=== PATIENT | male | born 1935 | race Caucasian/White ===

== ENCOUNTER 2020-04-19 07:09 | Day surgery (SDC) | payer MEDICARE, OTHER ==
[~2020-04-19] VITALS: Ht 177.8 cm; Wt 82.5 kg
[2020-04-19] MEDS ORDERED: OMEP20ER PO (07:59)
[2020-04-19] MEDS ORDERED: ZOCOR20 MG PO (08:00)
[2020-04-19] MEDS ORDERED: HYDCHL25 PO (08:00)
[2020-04-19] MEDS ORDERED: CARBLEV25 SL (08:01)
--- NOTE | 2020-04-19 08:35 | NUR ---
04/19/20 0835 Carina Zavala CALL LIG WITHIN REACH. DR. VALENZUELA AWARE OF PT'S HIGH BP. OK TO PROCEED WITH PROCEDURE.
== END 2020-04-19 09:25 | disposition home or self-care (01) ==
LOC: ORSCSDS 07:09
PROVIDERS: Ophthalmology
PROC: 08RJ3JZ Replacement of Right Lens with Synthetic Substitute, Percutaneous Approach (ICD-10-PCS; principal; 2020-04-19 08:30)
DX: H25.11 Age-related nuclear cataract, right eye (principal); I10 Essential (primary) hypertension; E78.5 Hyperlipidemia, unspecified; Z87.891 Personal history of nicotine dependence; K21.9 Gastro-esophageal reflux disease without esophagitis; G20 Parkinson's disease; Z79.899 Other long term (current) drug therapy
CPT/HCPCS: J2001; J2250; J3010; J3301; J7040; J7120; V2632

== ENCOUNTER → 2023-09-11 | Outpatient (CLI) | payer MEDICARE, OTHER ==
[~2023-09-11] MED LIST: CARBLEV25 SL; HYDCHL25 PO; OMEP20ER PO; ZOCOR20 MG PO
== END ==
LOC: LAB SHORT 12:09 → LAB 12:09
DX: L08.0 Pyoderma (principal)
CPT/HCPCS: 87070; 87205

== ENCOUNTER 2024-11-04 08:27 | Inpatient (IN) | payer MEDICARE, OTHER ==
[~2024-11-04] VITALS: Ht 185.4 cm; Wt 78.0 kg
[~2024-11-04 08:27] MED LIST changes: +CARBIDOPA-LEVO1 EA15 PO; -CARBLEV25 SL
[2024-11-04 09:20] LABS: BASOPHILS ABSOLUTE AUTO 0.02 K/mm3 (0.00-0.23); BASOPHILS PERCENT AUTO 0 % (0-2); EOSINOPHILS PERCENT AUTO 0 % (0-6); Hematocrit 40.7 % (37.0-53.0); Hemoglobin 14.1 g/dL (13.5-17.5); IMMATURE GRAN ABSOLUTE AUTO 0.05 K/mm3 (0.00-0.10); IMMATURE GRAN PERCENT AUTO 1 % (0-1); LYMPHOCYTES ABSOLUTE AUTO 0.57 K/mm3 (0.84-5.20); LYMPHOCYTES PERCENT AUTO 7 % (21-46); MONOCYTES ABSOLUTE AUTO 0.64 K/mm3 (0.16-1.47); MONOCYTES PERCENT AUTO 8 % (4-13); Mean Corpuscular HGB 32.4 pg (26.0-34.0); Mean Corpuscular HGB Conc 34.6 g/dL (31.5-36.5); Mean Corpuscular Volume 94 fL (80-100); Mean Platelet Volume 10.9 fL (9.1-12.4); NEUTROPHILS ABSOLUTE AUTO 6.71 K/mm3 (1.96-9.15); NEUTROPHILS PERCENT AUTO 84 % (41-73); Platelet Count 104 K/mm3 (150-400); RDW Coefficient Variation 13.8 % (11.7-14.2); RDW Standard Deviation 47.8 fL (35.1-46.3); Red Blood Cell Count 4.35 M/mm3 (4.30-5.90); White Blood Cell Count 7.99 K/mm3 (4.00-11.30)
[2024-11-04 09:32] LABS: Albumin, Blood 3.6 g/dL (3.4-5.0); Albumin/Globulin Ratio 0.9 (0.8-1.8); Bilirubin, Total 1.9 mg/dL (0.1-1.0); Bun/Creatinine Ratio 22.4 (12.0-20.0); Calcium, Blood 9.4 mg/dL (8.5-10.1); Creatinine, Blood 1.43 mg/dL (0.60-1.20); Potassium, Blood 5.3 mmol/L (3.5-5.5); Total Protein, Blood 7.6 g/dL (6.4-8.2)
[2024-11-04] MEDS ORDERED: NS 1,000 ML IV SCH ×2 (09:50→15:30)
[2024-11-04 11:24] LABS: Influenza A, PCR NEGATIVE (NEGATIVE); Influenza B, PCR NEGATIVE (NEGATIVE); SARS-Cov-2 (COVID-19) PCR, MMC NEGATIVE (NEGATIVE)
[2024-11-04 11:24] LABS: Source, Urine Clean Catch
[2024-11-04 11:36] LABS: Resp Syncytial Virus, PCR POSITIVE (NEGATIVE)
[2024-11-04 11:59] LABS: Appearance, Urine Hazy (Clear); Bilirubin, Urine Neg (Neg); Blood, Urine 5+ (Neg); Color, Urine Yellow (P-Yellow); Glucose Qualitative, Urine Neg (Neg); Ketones, Urine Neg (Neg); Leukocyte Esterase, Urine 1+ (Neg); Nitrite, Urine Neg (Neg); Protein, Urine 3+ (Neg); Specific Gravity, Urine 1.015 (1.003-1.022); Urobilinogen, Urine 1+ (Normal)
[2024-11-04 12:11] LABS: Bacteria Mod /hpf; Hyaline Casts 0-2 /lpf (0-2); Mucus Light (0-Heavy); Red Blood Cells, Urine 50-100 /hpf (0-2); Squamous Epithelial Cells Few /hpf (Few)
[2024-11-04] MEDS ORDERED: CefTRIAXone Sodium 2,000 MG in NS 100 ML IV ONE (12:35)
[2024-11-04] MEDS ORDERED: Azithromycin 500 MG in NS 250 ML IV ONE (12:35)
[2024-11-04] MEDS ORDERED: Ipratropium/Albuterol SulF 2.5-0.5MG/3 ML Amp INH PRN (13:45)
[2024-11-04] MEDS ORDERED: FLU VACC TS2024-25(6MOS UP)/PF 45 MCG/0.5 ML SYRINGE IM SCH (13:50)
[2024-11-04 16:57] VITALS: BP 203/103
[2024-11-04] MEDS ORDERED: HydrALAZINE HCl 20 MG / ML 1ML Vial IV PRN (17:10)
--- NOTE | 2024-11-04 17:20 | NUR ---
Pt arrived to 357 via gurney from ED, he is able to stand and transfer with assist to bed, he is a/ox2-3, follows commands and is cooperative with care, when asked him what happened to bring him to hospital he started telling a story about his father coming to [facility], lungs are clear in upper velasco, dim in bases, resp even and unnlabored, no cough noted, hrr, no edema noted, ppp+2, cap refill <3 sec, vs stable, afebrile, piv to rere site is clear and patent, btx4, abd flat soft nontender, voids via urinal, skin c/w/d, maew, brandon, oriented to room layout and call system, call light in reach.
[2024-11-04] MEDS ORDERED: VENL75ER PO (17:48)
[2024-11-04] MEDS ORDERED: Amlodipine Bes2.5 MG PO ×2 (17:50→17:54)
[2024-11-04] MEDS ORDERED: VIT D3-VIT K21 EACH PO (17:51)
[2024-11-04] MEDS ORDERED: ALLO100 PO (17:53)
[2024-11-04] MEDS ORDERED: ATORVASTATIN CA80 M1 PO (17:55)
[2024-11-04] MEDS ORDERED: OMEP20ER PO (17:56)
[2024-11-04] MEDS ORDERED: Venlafaxine HCl75 MG PO (17:57)
[2024-11-04] MEDS ORDERED: ERGO400 PO (17:58)
[2024-11-04 18:16] VITALS: BP 174/82
[2024-11-04 19:52] VITALS: BP 124/57
[2024-11-04] MEDS ORDERED: Venlafaxine HCl 25 MG Tab PO SCH (21:00)
[2024-11-04] MEDS ORDERED: GuaiFENesin 600 MG TabCR PO SCH (21:00)
[2024-11-04] MEDS ORDERED: Levodopa/Carbidopa 100 / 25 MG Tab PO SCH (21:00)
[2024-11-05] VITALS (8 sets, daily range): BP systolic 92–194; BP diastolic 52–90
[2024-11-05 05:06] LABS: Hematocrit 38.6 % (37.0-53.0); Hemoglobin 13.3 g/dL (13.5-17.5); Mean Corpuscular HGB 32.4 pg (26.0-34.0); Mean Corpuscular HGB Conc 34.5 g/dL (31.5-36.5); Mean Corpuscular Volume 94 fL (80-100); Mean Platelet Volume 10.6 fL (9.1-12.4); Platelet Count 100 K/mm3 (150-400); RDW Standard Deviation 48.9 fL (35.1-46.3); White Blood Cell Count 4.46 K/mm3 (4.00-11.30)
--- NOTE | 2024-11-05 05:12 | NUR ---
SHIFT SUMMARY: PT AOX3 FORGETFUL OF DATE, SOME CONFUSION BUT EASILY REDIRECTABLE AND VERY PLEASANT. COOPERATIVE IN CARE. PT FOLLOWS COMMANDS AND IS ABLE TO MAKE NEEDS KNOWN. [place] THOUGH HE HAS HIS HEARING AIDS HE DOESNT THINK THEY ARE CHARGED. PT TOLERATING MEDICATIONS WELL. SOME EPISODE OF HTN, MEDICATED PER EMR. PT NOT IMPULSIVE AND ABLE TO MAKE NEEDS KNOWN. AFTER EVENING MEDS HAS HAD A PRODUCTIVE COUGH BUT DENIES ANY SOB OR CP. PT WAS ABLE TO STAND WITH ASSISST AND FWW AND USE THE URINAL. VERY UNSTEADY ON FEET. PT AWARE OF LIMITATIONS. PT IN BED RESTING, BED ALARM ON, BED IN LOWEST POSITION, CALL LIGHT IN REACH. CONTINUING CARE.
[2024-11-05 05:31] LABS: Bun/Creatinine Ratio 26.7 (12.0-20.0); Creatinine, Blood 1.16 mg/dL (0.60-1.20); Potassium, Blood 3.7 mmol/L (3.5-5.5)
[2024-11-05] MEDS ORDERED: Omeprazole 20 MG CapCR PO SCH (06:00)
[2024-11-05] MEDS ORDERED: Allopurinol 100 MG Tab PO SCH (09:00)
[2024-11-05] MEDS ORDERED: Atorvastatin 10 MG Tab PO SCH (09:00)
[2024-11-05] MEDS ORDERED: Enoxaparin 40 MG/0.4 ML SYR SC SCH (09:00)
[2024-11-05] MEDS ORDERED: Cholecalciferol 400 unit Tab PO SCH (09:00)
[2024-11-05] MEDS ORDERED: AmLODIPine Besylate 5 MG Tab PO SCH (09:00)
[2024-11-05] MEDS ORDERED: CefTRIAXone Sodium 1,000 MG in NS 100 ML IV SCH (12:00)
[2024-11-05] MEDS ORDERED: Azithromycin 500 MG in NS 250 ML IV SCH (12:00)
[2024-11-05] MEDS ORDERED: CARBIDOPA-LEVO1 EA15 PO (12:33)
[2024-11-05] MEDS ORDERED: Acetaminophen 325 MG TABLET PO PRN (13:50)
--- NOTE | 2024-11-05 19:50 | NUR ---
PER SPOUSE, PT LOOKING AND FEELING MUCH BETTER TODAY THAN YESTERDAY. UNSTEADY GAIT. 1 PERSON ASSIST WITH FWW AND GAIT BELT TO BATHROOM. PT ON R.A AT 1800. PT IS ALERT AND ORIENTED X3-4, FORGETFUL AND NOT QUITE AT BASELINE. SPOUSE STATES PT NOT NORMALLY INTERMITTENT CONFUSED. EASILY REDIRECTABLE. BED ALARM ON.
--- NOTE | 2024-11-05 22:45 | NUR ---
PATIENT HYPERTENSIVE AT SHIFT CHANGE 194/90. IV APRESOLINE 10 MG GIVEN FOR SBP > 185. RECHECK 143/81. WCTM.
[2024-11-06 00:54] VITALS: BP 154/82
--- NOTE | 2024-11-06 04:06 | NUR ---
SHIFT SUMMARY PATIENT HYPERTENSIVE AT SHIFT CHANGE (SEE NOTE). AXO X 3-4 WITH CONFUSION AT TIMES. LEFT SIDE TREMORS WITH HX OF PARKINSON. DENIES CHEST PAIN, SOB, AND N/V. PIV INTACT. TELE MONITOR NSR 75. ON ROOM AIR. ONE ASSIST TO BR . CALL LIGHT IN REACH. BED IN LOWEST POSITION AND ALARM ACTIVATED. WILL CONTINUE TO MONITOR UNTIL DAY SHIFT NURSE ASSUMES CARE.
[2024-11-06 04:55] VITALS: BP 182/90
[2024-11-06 07:28] VITALS: BP 209/90
[2024-11-06 08:42] VITALS: BP 151/75
[2024-11-06] MEDS ORDERED: Amoxicillin/Clavulanate K 875 MG Tab PO SCH (09:00)
[2024-11-06] MEDS ORDERED: AmLODIPine Besylate 5 MG Tab PO SCH (09:00)
[2024-11-06 11:22] VITALS: BP 126/66
[2024-11-06] MEDS ORDERED: AMOCLA875 PO (11:53)
[2024-11-06] MEDS ORDERED: VISBIOME 112.51 EACH PO (11:54)
[2024-11-06] MEDS ORDERED: Q-Tussin100 MG/5 M PO (11:55)
--- NOTE | 2024-11-06 12:41 | NUR ---
DISCHARGE SUMMARY PATIENT DISCHARGED HOME THIS SHIFT WITH TO DRIVE. IV REMOVED WITHOUT COMPLICATION. ASSISTED PATIENT TO DRESS. DISCHARGE PACKET GIVEN AND REVIEWED WITH PT AND , QUESTIONS ANSWERED, VERBALIZED UNDERSTANDING. MEDS FAXED TO [facility] DUE TO WEEKEND AVAILABILITY.
== END 2024-11-06 12:18 | disposition home or self-care (01) | DRG 193 ==
LOC: ER 08:27 → MEDS 13:44
PROVIDERS: Emergency Medicine; Student in an Organized Health Care Education/Training Program; ADMIT Internal Medicine
DX: J18.9 Pneumonia, unspecified organism (principal); J96.01 Acute respiratory failure with hypoxia; E87.1 Hypo-osmolality and hyponatremia; G20.A1 Parkinson's disease without dyskinesia, without mention of fluctuations; Z66 Do not resuscitate; J44.9 Chronic obstructive pulmonary disease, unspecified; I10 Essential (primary) hypertension; E78.5 Hyperlipidemia, unspecified; M10.9 Gout, unspecified; J20.5 Acute bronchitis due to respiratory syncytial virus; K21.9 Gastro-esophageal reflux disease without esophagitis; F32.A Depression, unspecified; R53.1 Weakness; Z87.891 Personal history of nicotine dependence; Z90.79 Acquired absence of other genital organ(s); Z90.89 Acquired absence of other organs; Z90.49 Acquired absence of other specified parts of digestive tract; Z98.41 Cataract extraction status, right eye; Z79.899 Other long term (current) drug therapy
CPT/HCPCS: 0241U; 36415; 70450; 71046; 74177; 76705; 80048; 80053; 81001; 83605; 83690; 85025; 85027; 87040; 87077; 87086; 87186; 93005; 93010; 96365; 96368; 97110; 97116; 97162; 97165; 99285-25; A9270; J0360; J0456; J0696; J1650; J7030; J7050; Q9967

== ENCOUNTER 2025-03-05 02:56 | Inpatient (IN) | payer MEDICARE, OTHER ==
[~2025-03-05] VITALS: Ht 180.3 cm; Wt 76.2 kg
[2025-03-05] VITALS (31 sets, daily range): BP systolic 76–162; BP diastolic 43–107
[~2025-03-05 02:56] MED LIST changes: +ALLO100 PO; +AMOCLA875 PO; +ATORVASTATIN CA80 M1 PO; +Amlodipine Bes2.5 MG PO; +ERGO400 PO; +Q-Tussin100 MG/5 M PO; +VENL75ER PO; +VISBIOME 112.51 EACH PO; +VIT D3-VIT K21 EACH PO; +Venlafaxine HCl75 MG PO
[2025-03-05 03:24] LABS: BASOPHILS ABSOLUTE AUTO 0.02 K/mm3 (0.00-0.23); BASOPHILS PERCENT AUTO 0 % (0-2); EOSINOPHILS ABSOLUTE AUTO 0.00 K/mm3 (0.00-0.68); EOSINOPHILS PERCENT AUTO 0 % (0-6); Hematocrit 30.4 % (37.0-53.0); Hemoglobin 9.8 g/dL (13.5-17.5); IMMATURE GRAN ABSOLUTE AUTO 0.08 K/mm3 (0.00-0.10); IMMATURE GRAN PERCENT AUTO 1 % (0-1); LYMPHOCYTES ABSOLUTE AUTO 1.20 K/mm3 (0.84-5.20); LYMPHOCYTES PERCENT AUTO 20 % (21-46); MONOCYTES ABSOLUTE AUTO 0.29 K/mm3 (0.16-1.47); MONOCYTES PERCENT AUTO 5 % (4-13); Mean Corpuscular HGB Conc 32.2 g/dL (31.5-36.5); Mean Corpuscular Volume 101 fL (80-100); NEUTROPHILS ABSOLUTE AUTO 4.31 K/mm3 (1.96-9.15); NEUTROPHILS PERCENT AUTO 73 % (41-73); NRBC ABSOLUTE 0.00 K/mm3 (0.00-0.02); NRBC Auto 0.0 /100 WBC (0.0-0.2); Platelet Count 119 K/mm3 (150-400); RDW Coefficient Variation 13.9 % (11.7-14.2); RDW Standard Deviation 51.3 fL (35.1-46.3)
[2025-03-05 03:50] LABS: Prothrombin Time Results 13.0 Sec (9.7-11.5)
[2025-03-05 04:03] LABS: Magnesium, Blood 1.9 mg/dL (1.6-2.4); Thyroid Stimulating Hormone 2.41 uIU/mL (0.360-4.800)
[2025-03-05 04:04] LABS: Alanine Aminotransfer (ALT/SGP 16.0 U/L (12-78); Albumin, Blood 2.8 g/dL (3.4-5.0); Albumin/Globulin Ratio 1.2 (0.8-1.8); Anion Gap 13.0 mmol/L (3-11); Aspartate Aminotrans (AST/SGOT 14.0 U/L (12-37); Bilirubin, Total 0.7 mg/dL (0.1-1.0); Blood Urea Nitrogen 49.0 mg/dL (8-24); CO2, Blood 20.0 mmol/L (21-32); Calcium, Blood 7.9 mg/dL (8.5-10.1); Chloride, Blood 109.0 mmol/L (98-108); Creatinine, Blood 1.78 mg/dL (0.60-1.20); Globulin, Blood 2.3 g/dL (2.2-4.0); Glucose, Blood 257.0 mg/dL (70-99); Phosphorus, Blood 4.5 mg/dL (2.5-4.9); Potassium, Blood 4.1 mmol/L (3.5-5.5); Sodium, Blood 138.0 mmol/L (136-145); Total Protein, Blood 5.1 g/dL (6.4-8.2)
[2025-03-05] MEDS ORDERED: NS 1,000 ML IV SCH ×2 (04:35→06:00)
[2025-03-05 04:44] LABS: Hematocrit 27.2 % (37.0-53.0); Hemoglobin 9.2 g/dL (13.5-17.5)
--- NOTE | 2025-03-05 06:20 | NUR ---
Patient arrived to unit around 0620. Report received from ALEXANDER Fuentes-LUIS ENRIQUE. was at bedside. AOx3, UNALAKLEET. Tele: SR. Patient blanked out staring into space and unresponsive to verbal and tactile stimuli while this RN and ROLLER SHOP UTILITY WORKER was getting patient settled into room. ELECTRICAL PROSPECTING OPERATOR intiated. Received V.O. from Dr. Shahab Robles to discontinue blood pressure lowering meds that are currently ordered for patient. [facility] d/c'd. Patient remains in room 304. Settled to bed, call light in reach. Report handed to day RNRama.
[2025-03-05 06:53] LABS: Hematocrit 28.2 % (37.0-53.0); Hemoglobin 8.9 g/dL (13.5-17.5)
[2025-03-05] MEDS ORDERED: Pantoprazole Sodium 40 MG Injection IV SCH (09:00)
[2025-03-05] MEDS ORDERED: NS 500 ML IV STA (09:33)
--- NOTE | 2025-03-05 09:34 | NUR ---
PATIENT HAS HAD 2 SYNCOPAL EPISODES SINCE ARRIVAL TO THE FLOOR. DR CORTÉS AT BEDSIDE FOR THE LAST EPISODE AND COMMUNICATED THIS TO DR RIOS. PLAN IS FOR MRI OF HEAD.
[2025-03-05] MEDS ORDERED: Levodopa/Carbidopa 100 / 25 MG Tab PO SCH ×3 (11:00→16:00)
--- NOTE | 2025-03-05 14:26 | NUR ---
OVER THE LAST 2 HOURS PATIENT HAS HAD 4 DARK RED BLOODY BOWEL MOVEMENTS. CONFUSION HAS INCREASED OVER THE LAST SEVERAL HOURS AND PATIENT IS HAVING VISUAL HALLUCINATIONS. APPEARS TO HAVE ABSENT EPISODES WHERE HE DOES NOT REPSOND OR FOLLOW COMMANDS. DR RIOS NOTIFIED AND A STAT H/H ORDERED. ALSO VERBAL ORDERS TO TRANSFER TO PCU.
[2025-03-05 15:12] LABS: Hematocrit 20.8 % (37.0-53.0); Hemoglobin 6.7 g/dL (13.5-17.5)
--- NOTE | 2025-03-05 15:55 | NUR ---
ARRIVAL PATIENT ARRIVES TO UNIT AND WE SWAPPED BEDS. PATIENT IS ALERT AND ORIENTED TO YEAR. DOES NOT KNOW WHERE HE IS AT OR WHAT BROUGHT HIM IN. WAS NOTIFIED OF ROOM CHANGE. VITAL SIGNS TAKEN & PT STABLE. DENYING ANY CHEST PAIN/PRESSURE OR FEELING SHORT OF BREATH. PUREWICK PLACED AND PT ORIENTED TO ROOM. HAS CALL LIGHT WITHIN REACH, BED IN LOWEST POSITION & STATING NOTHING ELSE IS NEEDED AT THIS TIME.
[2025-03-05] MEDS ORDERED: Diazepam 5 MG / ML 2ML SYR IV PRN (16:50)
--- NOTE | 2025-03-05 16:56 | NUR ---
SEIZURE LIKE ACTIVITY: PATIENT WAS SAT UP BY THIS RN TO ATTEMPT A BEDSIDE SWALLOW EVALUATION, ONCE PATIENT WAS SAT UP AT 90 DEGREES HE HAD A BLANK STARE,STOPPED TALKING,STARTED SNORING AND GOT RIGID & SMALL SHAKES. PT WAS LAID BACK DOWN, AND TURNED TO HIS RIGHT SIDE. MOUTH WAS SUCTIONED AND SHORTLY AFTER PATIENT CAME BACK TO CONSIOUSNESS. WAS CONFUSED ON WHERE HE WAS AT. WAS ABLE TO GIVE NAME. CASEY MCDONNELL WAS STARATED,MD WAS NOTIFIED & FAMILY WAS CALLED. TRANSPORT TO COME TO GET PT MORE IMAGING DONE. FAMILY IN ROOM AND PATIENT CONVERSING WITH THEM.
[2025-03-05] MEDS ORDERED: NS 250 ML IV PRN (17:35)
--- NOTE | 2025-03-05 19:18 | NUR ---
PT ARRIVEE FROM PCU AT 1830. NEURO: PT NOT FOLLOWING COMMANDS FOR LONG, MINIMALLY REDIRECTABLE. MOVES ALL EXTREMITITES BUT WEAK. GOOD HAND BLADE OPERATOR. GRABBING AT STAFFS CLOTHING. CAME TO BEDSIDE AND ABLE TO REDIRECT. NO VISIBLE SEIZURE ACTIVITY UPON ARRIVAL BUT PT CONFUSED AND AGITATED ASKING REPETATIVE QUESTIONS. CARDIAC: SBP 110-120S UPON ARRIVAL, IMPROVED. FLUIDS RUNNING ORDERED AND 1 UNIT PRBC RUNNING AT 150ML/HR UNABLE TO OBTAIN AN ACCURATE WEIGHT DUE TO MOVEMENT. SKIN: SEE ASSESSMENT. FAMILY AT BEDSIDE, TO STAY THE NIGHT, BROUGHT RECLINER TO THE ROOM.
[2025-03-06] VITALS (76 sets, daily range): BP systolic 85–177; BP diastolic 26–98
[2025-03-06 00:10] LABS: Hematocrit 22.7 % (37.0-53.0); Hemoglobin 7.7 g/dL (13.5-17.5)
[2025-03-06 06:06] LABS: BASOPHILS ABSOLUTE AUTO 0.01 K/mm3 (0.00-0.23); BASOPHILS PERCENT AUTO 0 % (0-2); EOSINOPHILS ABSOLUTE AUTO 0.00 K/mm3 (0.00-0.68); EOSINOPHILS PERCENT AUTO 0 % (0-6); Hematocrit 19.6 % (37.0-53.0); Hemoglobin 6.6 g/dL (13.5-17.5); IMMATURE GRAN ABSOLUTE AUTO 0.14 K/mm3 (0.00-0.10); IMMATURE GRAN PERCENT AUTO 1 % (0-1); LYMPHOCYTES ABSOLUTE AUTO 0.85 K/mm3 (0.84-5.20); LYMPHOCYTES PERCENT AUTO 9 % (21-46); MONOCYTES ABSOLUTE AUTO 0.54 K/mm3 (0.16-1.47); MONOCYTES PERCENT AUTO 6 % (4-13); Mean Corpuscular HGB Conc 33.7 g/dL (31.5-36.5); NEUTROPHILS ABSOLUTE AUTO 8.14 K/mm3 (1.96-9.15); NEUTROPHILS PERCENT AUTO 84 % (41-73); NRBC ABSOLUTE 0.00 K/mm3 (0.00-0.02); NRBC Auto 0.0 /100 WBC (0.0-0.2); Platelet Count 101 K/mm3 (150-400); RDW Coefficient Variation 15.9 % (11.7-14.2); RDW Standard Deviation 54.4 fL (35.1-46.3)
[2025-03-06 06:07] LABS: Mean Corpuscular Volume 96 fL (80-100)
[2025-03-06 06:28] LABS: Alanine Aminotransfer (ALT/SGP 19.0 U/L (12-78); Albumin, Blood 2.4 g/dL (3.4-5.0); Albumin/Globulin Ratio 1.3 (0.8-1.8); Anion Gap 8.0 mmol/L (3-11); Aspartate Aminotrans (AST/SGOT 13.0 U/L (12-37); Bilirubin, Total 0.5 mg/dL (0.1-1.0); Blood Urea Nitrogen 65.0 mg/dL (8-24); CO2, Blood 21.0 mmol/L (21-32); Calcium, Blood 7.6 mg/dL (8.5-10.1); Chloride, Blood 120.0 mmol/L (98-108); Creatinine, Blood 2.24 mg/dL (0.60-1.20); Globulin, Blood 1.8 g/dL (2.2-4.0); Glucose, Blood 132.0 mg/dL (70-99); Potassium, Blood 5.3 mmol/L (3.5-5.5); Sodium, Blood 144.0 mmol/L (136-145); Total Protein, Blood 4.2 g/dL (6.4-8.2)
--- NOTE | 2025-03-06 07:01 | NUR ---
SHIFT SUMMARY ASSUMED CARE OF PATIENT AT 2230. PATIENT HAD INCREASED AGITATION THROUGHOUT THE NIGHT. DR. ORO NOTIFIED. NEW ORDERS RECEIVED. PATIENTS , JORGE LUIS AT BEDSIDE, ABLE TO HELP KEEP PATIENT CALM. AM HGB 6.6, ORDER TO TRANSFUSE 1 UNIT PRBCS. BEDSIDE REPORT GIVEN TO LUIS ENRIQUE FIERRO. CARE PLAN ONGOING.
[2025-03-06] MEDS ORDERED: Pantoprazole Sodium 40 MG Injection IV STA (08:38)
[2025-03-06] MEDS ORDERED: Furosemide 10 MG / ML 2ML Vial IV ONE (08:40)
[2025-03-06] MEDS ORDERED: NS 1,000 ML IV SCH (08:40)
[2025-03-06] MEDS ORDERED: Levodopa/Carbidopa 100 / 25 MG Tab PO SCH (11:30)
--- NOTE | 2025-03-06 11:39 | NUR ---
ASSUMPTION OF CARE: ASSUMED CARE AT START OF SHIFT (0700). PT IS DOING WELL AND RESTING IN BED. PT IS NOT ALERT AND NOT FOLLOWING COMMANDS. ONLY RESPONSIVE TO PAINFUL STIMULI AT THIS TIME. LUNG SOUNDS: EXPIRATORY WHEEZE ON THE R SIDE AND CLEAR ON THE LEFT SIDE, ON RA WITH SPO2 >92%. SINUS RYTHM WITH SBP: 110'S MAP >65 HR: 80-90'S ON LEVOPHED GTT PER EMR ORDERS. IV: CENTERAL LINE IN RIJ. KING CATHETER IN PLACE AND DRAINING TO GRAVITY. SKIN: ABRASIONS AND BRUISING SCATTERED ALL OVER, PICTURES ARE IN THE CHART. LINES, CORDS, AND TUBES PLACED OUT OF REACH. CALL LIGHT PLACED WITHIN REACH.
--- NOTE | 2025-03-06 12:27 | NUR ---
ASSUMPTION OF CARE: ASSUMED CARE AT START OF SHIFT (0700). PT IS DOING WELL AND LYING IN BED. PT IS CONFUSED, ALERT TO SELF AND CAN FOLLOW SIMPLE COMMANDS. PT HAS BILATERAL SOFT WRIST RESTRAINTS IN PLACE, PT WILL TRY TO PULL AT CORDS AND CAN GET AGITATED/AGRESSIVE TOWARDS STAFF AND FAMILY. LUNG SOUNDS ARE CLEAR AND EQUAL BILATERALLY. ON RA WITH SPO2 >95%. SINUS RYTHM WITH SBP: 140-150'S MAP >65 HR: 80'S. IV: LAC, RAC, R FOREARM. MALE PUREWICK IN PLACE AND CONNECTED TO WALL SUCTION. LINES, CORDS, AND TUBES PLACED OUT OF REACH. CALL LIGHT PLACED WITHIN REACH.
[2025-03-06] MEDS ORDERED: EpiNEPhrine 1 MG/1 ML 1ML Vial ONE (13:43)
[2025-03-06] MEDS ORDERED: Phenylephrine HCl 100 MCG/ML-NS 10MLSYR (1MG/10ML) ONE (13:47)
[2025-03-06] MEDS ORDERED: Peg/Electrolytes 4,000 ML BTL PT ONE (14:40)
--- NOTE | 2025-03-06 14:56 | NUR ---
03/06/25 1455 Indigo Rios PRIOR TO START OF PROCEDURE History, Chart, Medications and Allergies reviewed before start of procedure.Bite Block PlacedAFTER INTUBATED, ANESTHESIA PROVIDER DR CHARLES, SEE RECORDS
--- NOTE | 2025-03-06 15:00 | NUR ---
PT TO OR: PT WAS TAKEN TO OR FOR UPPER GI EVAL AT 1300. PT RETURNED FROM THE OR AT 1425 (03/06/25). PT WAS INTUBATED AND SEDATED IN THE OR AND WILL REMAIN INTUBATED AND SEDATED IN THE ICU. DR. CORTÉS DID NOT FIND SOURCE OF BLEEDING IN THE UPPER GI TRACK. PT IS SCHEDUELED TO RETURN TO OR TOMORROW FOR COLONOSCOPY. NG TUBE WAS PLACED IN THE OR.
[2025-03-06] MEDS ORDERED: Hydrogen Peroxide 1.5 % Solution MT SCH (16:00)
[2025-03-06 16:38] LABS: Hematocrit 21.4 % (37.0-53.0); Hemoglobin 7.3 g/dL (13.5-17.5)
[2025-03-06 16:54] LABS: Magnesium, Blood 1.7 mg/dL (1.6-2.4)
[2025-03-06 16:55] LABS: Alanine Aminotransfer (ALT/SGP 8.0 U/L (12-78); Albumin, Blood 2.1 g/dL (3.4-5.0); Albumin/Globulin Ratio 1.4 (0.8-1.8); Anion Gap 7.0 mmol/L (3-11); Aspartate Aminotrans (AST/SGOT 15.0 U/L (12-37); Bilirubin, Total 0.7 mg/dL (0.1-1.0); Blood Urea Nitrogen 68.0 mg/dL (8-24); CO2, Blood 20.0 mmol/L (21-32); Calcium, Blood 7.4 mg/dL (8.5-10.1); Chloride, Blood 122.0 mmol/L (98-108); Creatinine, Blood 2.33 mg/dL (0.60-1.20); Globulin, Blood 1.5 g/dL (2.2-4.0); Glucose, Blood 141.0 mg/dL (70-99); Phosphorus, Blood 4.3 mg/dL (2.5-4.9); Potassium, Blood 4.9 mmol/L (3.5-5.5); Sodium, Blood 144.0 mmol/L (136-145); Total Protein, Blood 3.6 g/dL (6.4-8.2)
--- NOTE | 2025-03-06 18:45 | NUR ---
SHIFT SUMMARY: PT IS DOING WELL AND RESTING IN BED. PT WAS INTUBATED IN OR AND REMAINS INTUBATED AND SEDATED WITH PRECEDEX GTT PER EMR ORDERS. VENT SETTING: ACVC: 14/480/5/45%. SPO2 >95%. SINUS RYTHM WITH SBP: 90-120'S MAP >65 HR: 60-70'S. IV: RAC, R FOREARM, AND PICC IN LUE. KING CATHETER AND RECTAL TUBE IN PLACE AN DRAINING TO GRAVITY. NG TUBE PLACED AND CONNECTED TO BOLOUS MEDICATION (LUIS). LINES, CORDS, AND TUBES PLACED OUT OF REACH. CALL LIGHT PLACED WITHIN REACH.
[2025-03-06 19:00] LABS: pH Blood Venous 7.33 (7.34-7.37)
[2025-03-06] MEDS ORDERED: Cetylpyridinium Chloride 1 EA MISC MT SCH (20:00)
[2025-03-06 20:19] LABS: Hematocrit 18.0 % (37.0-53.0); Hemoglobin 6.2 g/dL (13.5-17.5)
[2025-03-07] VITALS (86 sets, daily range): BP systolic 83–199; BP diastolic 40–132
[2025-03-07] MEDS ORDERED: Peg/Electrolytes 4,000 ML BTL PT ONE (02:00)
[2025-03-07 04:35] LABS: Alanine Aminotransfer (ALT/SGP 16.0 U/L (12-78); Albumin, Blood 2.1 g/dL (3.4-5.0); Albumin/Globulin Ratio 1.4 (0.8-1.8); Anion Gap 9.0 mmol/L (3-11); Aspartate Aminotrans (AST/SGOT 13.0 U/L (12-37); Bilirubin, Total 0.6 mg/dL (0.1-1.0); Blood Urea Nitrogen 65.0 mg/dL (8-24); CO2, Blood 24.0 mmol/L (21-32); Calcium, Blood 7.2 mg/dL (8.5-10.1); Chloride, Blood 118.0 mmol/L (98-108); Creatinine, Blood 2.12 mg/dL (0.60-1.20); Globulin, Blood 1.5 g/dL (2.2-4.0); Glucose, Blood 137.0 mg/dL (70-99); Magnesium, Blood 1.7 mg/dL (1.6-2.4); Phosphorus, Blood 4.4 mg/dL (2.5-4.9); Potassium, Blood 3.8 mmol/L (3.5-5.5); Sodium, Blood 147.0 mmol/L (136-145); Total Protein, Blood 3.6 g/dL (6.4-8.2)
[2025-03-07 04:41] LABS: Hematocrit 18.9 % (37.0-53.0); Hemoglobin 6.6 g/dL (13.5-17.5); Mean Corpuscular HGB Conc 34.9 g/dL (31.5-36.5); Mean Corpuscular Volume 93 fL (80-100); NRBC ABSOLUTE 0.03 K/mm3 (0.00-0.02); NRBC Auto 0.3 /100 WBC (0.0-0.2); Platelet Count 80 K/mm3 (150-400); RDW Coefficient Variation 15.9 % (11.7-14.2); RDW Standard Deviation 52.7 fL (35.1-46.3)
--- NOTE | 2025-03-07 06:15 | NUR ---
SHIFT SUMMARY ASSUMED CARE OF PT AT 1900, PT REMAINS INTUBATED AND SEDATED ON PRECEDEX GTT FOR RASS -2, SB-SR 58-70s, AFEBRILE, ON VENT WITH SPO2 >92%, SBP 80s AND MAP 50s AT BEGINNING OF SHIFT, LEVOPHED GTT STARTED TO MAINTAIN MAP >65, TITRATED PER EMAR, LEFT NARE NGT PATENT AND SECURED WITH TAPE, GOLYTELY GIVEN PER EMAR, KING PATENT AND DRAINING TO GRAVITY, RECTAL TUBE PATENT AND DRAINING LARGE AMOUNT LIQUID MAROON STOOL TO GRAVITY, RECTAL TUBE BAG CHANGED X3 THIS SHIFT, CHEIKH PICC PATENT, LR INFUSING AT 125 ML/HR, PROTONIX INFUSING AT 10 ML/HR, PT TURNED AND REPOSITIONED EVERY 2 HOURS, SARAI WRIST RESTRAINTS IN PLACE, HGB 6.2 AT 2029, 1 UNIT PRBC INFUSED, HGB 6.9 AFTER COMPLETED WITH NO INTERVENTION ORDERD, HGB 6.6 THIS AM WITH 1 UNIT PRBC ORDERED
[2025-03-07 09:53] LABS: Prothrombin Time Results 12.6 Sec (9.7-11.5)
--- NOTE | 2025-03-07 10:01 | NUR ---
SHIFT ASSESSMENT ASSUMED CARE OF PT @ 0700, BEDSIDE REPORT RECEIVED FROM NOC NURSE. PT INTUBATED AND SEDATED c PRECEDEX, SEE FLOWSHEET AND RT CHARTING FOR SETTINGS. RASS OF -2/-1. LEVOPHED GTT INFUSING FOR MAP >65, SEE FLOWSHEET. OGT CLAMPED. BT'S HYPERACTIVE. RECTAL TUBE DRAINING PINK LIQUID. KING CATH DRAINING YELLOW URINE. PLANS FOR LOWER GI SCOPE TODAY AROUND 07-06.
[2025-03-07 10:21] LABS: Fibrinogen 192.0 mg/dL (170-430)
[2025-03-07] MEDS ORDERED: EpiNEPhrine 1 MG/1 ML 1ML Vial ONE (11:42)
[2025-03-07] MEDS ORDERED: Midazolam HCl 1MG / ML 2ML Vial ONE (12:22)
[2025-03-07] MEDS ORDERED: Midazolam HCl 1MG / ML 2ML Vial IV ONE (12:30)
--- NOTE | 2025-03-07 12:44 | NUR ---
03/07/25 1244 Indigo Rios History, Chart, Medications and Allergies reviewed before start of procedure.UBALDO ELEVATORS INSPECTOR IN [facility] JAREK
[2025-03-07 15:23] LABS: Hematocrit 21.5 % (37.0-53.0); Hemoglobin 7.5 g/dL (13.5-17.5)
--- NOTE | 2025-03-07 18:11 | NUR ---
SHIFT SUMMARY PT EXTUBATED THIS AFTERNOON TO 2L VIA NC, SATS >90%. NGT REMAINS IN PLACE FOR MEDS. PT ALERT TO SELF AND OCCASIONALLY FAMILY BUT REMAINS GENERALLY DISORIENTED. NOT CONSISTENTY FOLLOWING COMMANDS, PULLING AT NGT, KING, AND PICC LINE, PRECEDEX GTT INITIATED. PT NOW RELAXED, SLEEPING COMFORTABLY. KING CATH DRAINING YELLOW URINE. NO BLOODY STOOLS THIS AFTERNOON. FAMILY UPDATED AT BEDSIDE T/O DAY
--- NOTE | 2025-03-07 19:39 | NUR ---
UPDATE ASSUMED CARE OF PT AT 1900. RASS -1 ON PRECEDEX GTT, FOLLOWS COMMANDS, ORIENTED TO SELF ONLY, DR ROSE AT BEDSIDE, PRECEDEX PLACED ON HOLD PER MD. HR SR 80s, BP MAP >65, AFEBRILE, RESP EVEN AND UNLABORED ON 2 LPM NC, KING PATENT AND DRAINING TO GRAVITY, LEFT NARE NGT PATENT, CLAMPED, SECURED TO NOSE WITH TAPE, PLACEMENT VERIFIED BY AUSC. PT STATES HIS NAME, AGE 23 AND THAT HE IS AT HOME IN [place], ATTEMPT TO REORIENT PT TO HOSPITAL PT STATES " NO IM AT HOME" REPOSITIONED PT FOR COMFORT, PRECEDEX RESTARTED AFTER 20 MINUTES ON HOLD, SARAI WRIST RESTRAINTS REMAIN ON TO KEEP PT FROM PULLING OUT LINES, ORAL CARE DONE WITH PT ASKING FOR ICE COLD WATER TO DRINK. SIDE RAILS UP X3 BED IN LOW POSITION, CALL LIGHT IN REACH
[2025-03-07] MEDS ORDERED: Pantoprazole Sodium 40 MG Injection IV SCH (21:00)
[2025-03-07 22:06] LABS: Hematocrit 19.8 % (37.0-53.0); Hemoglobin 6.9 g/dL (13.5-17.5)
--- NOTE | 2025-03-07 22:10 | NUR ---
UPDATE HGB 6.[address] HUMPHREY WITH NEW ORDER RECEIVED TO TRANSFUSE 1 UNIT PRBC
[2025-03-08] VITALS (88 sets, daily range): BP systolic 69–217; BP diastolic 45–192
[2025-03-08 03:50] LABS: BASOPHILS ABSOLUTE AUTO 0.00 K/mm3 (0.00-0.23); BASOPHILS PERCENT AUTO 0 % (0-2); EOSINOPHILS ABSOLUTE AUTO 0.00 K/mm3 (0.00-0.68); EOSINOPHILS PERCENT AUTO 0 % (0-6); Hematocrit 23.8 % (37.0-53.0); Hemoglobin 8.5 g/dL (13.5-17.5); IMMATURE GRAN ABSOLUTE AUTO 0.12 K/mm3 (0.00-0.10); IMMATURE GRAN PERCENT AUTO 2 % (0-1); LYMPHOCYTES ABSOLUTE AUTO 0.37 K/mm3 (0.84-5.20); LYMPHOCYTES PERCENT AUTO 6 % (21-46); MONOCYTES ABSOLUTE AUTO 0.43 K/mm3 (0.16-1.47); MONOCYTES PERCENT AUTO 7 % (4-13); Mean Corpuscular HGB Conc 35.7 g/dL (31.5-36.5); Mean Corpuscular Volume 90 fL (80-100); NEUTROPHILS ABSOLUTE AUTO 5.40 K/mm3 (1.96-9.15); NEUTROPHILS PERCENT AUTO 85 % (41-73); NRBC ABSOLUTE 0.06 K/mm3 (0.00-0.02); NRBC Auto 0.9 /100 WBC (0.0-0.2); Platelet Count 65 K/mm3 (150-400); RDW Coefficient Variation 16.3 % (11.7-14.2); RDW Standard Deviation 52.2 fL (35.1-46.3)
--- NOTE | 2025-03-08 06:06 | NUR ---
SHIFT SUMMARY ASSUMED CARE OF PT AT 1900, PT REMAINS ON PRECEDEX GTT AND TITRATED FOR RASS -1/-2, SB-SR WITH PACs AND PVCs NOTED, HR 50-60s WITH OCCASSIONAL 45-49 BPM AND PRECEDEX TITRATED DOWN PER EMAR, BP STABLE WITH MAP >65, SBP 160-190s, RESP EVEN AND UNLABORED ON 2 LPM NC, LEFT NARE NGT PATENT, SECURED TO NOSE WITH TAPE,CLAMPED WITH SCHEDULED MEDS GIVEN NGT PER EMAR, KING PATENT AND DRAINING TO GRAVITY, SARAI WRIST RESTRAINTS REMAIN IN PLACE DUE TO PT CONFUSION AND PULLING/REACHING FOR LINES WHEN RESTRAINTS OFF AND UNABLE TO REDIRECT OR DISGUISE LINES/TUBES. PT AROUSES EASILY TO VERBAL STIMULI AND IMMEDIATELY STATES " I GOTTA GET UP AND OUT OF HERE" ATTEMPT TO REORIENT PT TO HOSPITAL AND PT STATES " IM NOT AT THE HOSPITAL. IM AT HOME IN [place]" REMINDED PT HE IS IN [place] AND PT STATES " NO, IM IN [place]" REFUSES TO OPEN EYES AND PULLS ON RESTRAINTS, THROWING LEGS OVER SIDE RAIL AND NOT REDIRECTABLE. PRECEDEX REMAINS ON, SIDE RAILS UP X3, BED IN LOW POSITION, PT TURNED AND REPOSITIONED EVERY 2 HOURS AND PRN, NOTED BUE WITH +2 EDEMA, CHEIKH PICC PATENT, LR INFUSING AT 125 ML/HR, 1 UNIT PRBC TRANSFUSED THIS SHIFT, NO BM THIS SHIFT
--- NOTE | 2025-03-08 08:00 | NUR ---
ASSUMPTION OF CARE: ASSUMED CARE AT START OF SHIFT (0700). PT IS DOING WELL AND RESTING IN BED. THEY ARE ALERT TO SELF AND ABLE TO FOLLOW SIMPLE COMMANDS AT THIS TIME. PT IS ON PRECEDEX GTT PER EMR ORDERS. LUNG SOUNDS ARE CLEAR AND EQUAL BILATERALLY, O2 VIA NC @ LPM SPO2 >95%. SINUS RYTHM WITH SBP: 150-180'S MAP >65 HR: 90'S. IV: PICC IN LUE AND PERIPHERAL IV IN RAC. KING CATHETER IN PLACE AND DRAINING TO GRAVITY. NG TUBE IS CLAMPPED. LINES, DRAINS, TUBES, AND CORDS PLACED OUT OF REACH. CALL LIGHT PLACED WITHIN REACH.
[2025-03-08 08:02] LABS: Anion Gap 8.0 mmol/L (3-11); Blood Urea Nitrogen 49.0 mg/dL (8-24); CO2, Blood 28.0 mmol/L (21-32); Calcium, Blood 7.6 mg/dL (8.5-10.1); Chloride, Blood 116.0 mmol/L (98-108); Creatinine, Blood 1.29 mg/dL (0.60-1.20); Glucose, Blood 142.0 mg/dL (70-99); Magnesium, Blood 1.7 mg/dL (1.6-2.4); Phosphorus, Blood 3.6 mg/dL (2.5-4.9); Potassium, Blood 2.9 mmol/L (3.5-5.5); Sodium, Blood 149.0 mmol/L (136-145)
[2025-03-08] MEDS ORDERED: Potassium Chl 20MEQ/Water100ML 100 ML IV STA (08:37)
[2025-03-08] MEDS ORDERED: Potassium Chl 20MEQ/Water100ML 100 ML IV SCH (08:40)
--- NOTE | 2025-03-08 11:46 | NUR ---
Pt. is awake in bed. Spouse is at bedside and welcomes my visit. Pt. is mostly silent and an introduction and short life review is faciliated with her. Spouse is pleasant, and verbalized gratitude for the spiritual care visit. Will remain availble to the Pt. and family.
[2025-03-08] MEDS ORDERED: Docusate Sodium Liquid 100 MG UDC PT PRN (12:05)
[2025-03-08] MEDS ORDERED: Magnesium Hydroxide Conc 10 ML UDC PT PRN (12:05)
[2025-03-08] MEDS ORDERED: HydrALAZINE HCl 20 MG / ML 1ML Vial IV PRN (12:35)
[2025-03-08] MEDS ORDERED: Insulin Regular 100 UNIT/ML 10ML Vial SC SCH (18:00)
--- NOTE | 2025-03-08 18:13 | NUR ---
SHIFT SUMMARY: PT IS DOING WELL AND RESTING IN BED. NO ACUTE CHANGES THROUGHOUT THE SHIFT. PT IS ALERT AND FOLLOWING SIMPLE COMMANDS. PT HAS BEEN ON RA WITH SPO2 >95%. SINUS RYTHM WITH SBP: 150-180'S MAP >65 HR: 70'S. PT DID NOT PASS SWALLOW EVAL TODAY, TF HAS BEEN STARTED AT RATE OF 25ML/HR, GOAL IS 65 ML/HR, WITH 100 ML FLUSHES Q4. KING CATHETER IN PLACED AND DRAINING TO GRAVITY. LINES, CORDS, AND TUBES PLACED OUT OF REACH. CALL LIGHT PLACED WITHIN REACH. PT HAS METAL PLATE IN HEAD, WHICH WAS PLACED AT [facility] IN [place], HOWEVER [facility] STATES THEY DO NOT HAVE A RECORD OF THE TYPE OF METAL AND WHEN THE PROCEDURE OCCURRED. SO PT IS NOT ABLE TO HAVE MRI DONE. DR. DONOVAN WAS NOTIFIED.
[2025-03-08 18:40] LABS: Anion Gap 4.0 mmol/L (3-11); Blood Urea Nitrogen 43.0 mg/dL (8-24); CO2, Blood 28.0 mmol/L (21-32); Calcium, Blood 7.8 mg/dL (8.5-10.1); Chloride, Blood 119.0 mmol/L (98-108); Creatinine, Blood 1.31 mg/dL (0.60-1.20); Glucose, Blood 103.0 mg/dL (70-99); Potassium, Blood 3.2 mmol/L (3.5-5.5); Sodium, Blood 148.0 mmol/L (136-145)
[2025-03-09] VITALS (55 sets, daily range): BP systolic 71–151; BP diastolic 19–113
[2025-03-09 03:52] LABS: BASOPHILS ABSOLUTE AUTO 0.01 K/mm3 (0.00-0.23); BASOPHILS PERCENT AUTO 0 % (0-2); EOSINOPHILS ABSOLUTE AUTO 0.00 K/mm3 (0.00-0.68); EOSINOPHILS PERCENT AUTO 0 % (0-6); Hematocrit 19.3 % (37.0-53.0); Hemoglobin 6.6 g/dL (13.5-17.5); IMMATURE GRAN ABSOLUTE AUTO 0.26 K/mm3 (0.00-0.10); IMMATURE GRAN PERCENT AUTO 3 % (0-1); LYMPHOCYTES ABSOLUTE AUTO 0.69 K/mm3 (0.84-5.20); LYMPHOCYTES PERCENT AUTO 8 % (21-46); MONOCYTES ABSOLUTE AUTO 0.73 K/mm3 (0.16-1.47); MONOCYTES PERCENT AUTO 9 % (4-13); Mean Corpuscular HGB Conc 34.2 g/dL (31.5-36.5); Mean Corpuscular Volume 93 fL (80-100); NEUTROPHILS ABSOLUTE AUTO 6.49 K/mm3 (1.96-9.15); NEUTROPHILS PERCENT AUTO 79 % (41-73); NRBC ABSOLUTE 0.09 K/mm3 (0.00-0.02); NRBC Auto 1.1 /100 WBC (0.0-0.2); Platelet Count 82 K/mm3 (150-400); RDW Coefficient Variation 17.1 % (11.7-14.2); RDW Standard Deviation 55.8 fL (35.1-46.3)
[2025-03-09 04:04] LABS: Anion Gap 5.0 mmol/L (3-11); Blood Urea Nitrogen 51.0 mg/dL (8-24); CO2, Blood 27.0 mmol/L (21-32); Calcium, Blood 7.3 mg/dL (8.5-10.1); Chloride, Blood 121.0 mmol/L (98-108); Creatinine, Blood 1.36 mg/dL (0.60-1.20); Glucose, Blood 143.0 mg/dL (70-99); Magnesium, Blood 1.8 mg/dL (1.6-2.4); Phosphorus, Blood 1.9 mg/dL (2.5-4.9); Potassium, Blood 3.7 mmol/L (3.5-5.5); Sodium, Blood 149.0 mmol/L (136-145)
[2025-03-09] MEDS ORDERED: Potassium Phosphate Dibasic 20 MM in Dextrose 5% 500 ML IV STA (04:20)
--- NOTE | 2025-03-09 05:06 | NUR ---
SHIFT SUMMARY PT WAS A/OX4 AT START OF SHIFT BUT HAS INCREASINGLY BECOME CONFUSED. HE IS STILL ABLE TO MAKE NEEDS KNOWN. BP STABLE, HR 70-80'S. REMAINED ON ROOM AIR ALL SHIFT WITH SATS >90%. KING DRAINING TO GRAVITY, DECENT UOP NOTED. ONE LARGE LIQUID MAROON BM, LINENS CHANGED. PT LABS CAME BACK W/ HGB OF 6.6 THIS AM, ORDERS FOR 1 UNIT PRBC REPLACEMENT ORDERED. KPHOS REPLACEMENT GIVEN WELL. NO OTHER ACUTE EVENTS. CALL LIGHT IN REACH.
--- NOTE | 2025-03-09 06:27 | NUR ---
TRANSFUSION STARTED I UNIT PRBC'S STARTED AT 0622 AT 75ML/H. BEGINNING VS: -TEMP 98.3, HR 88, BP 136/83 BEGINNING ASSESSMENT: -NEURO: A/OX2 TO SELF AND PLACE -RESP: ROOM AIR SATS 97%, LUNG SOUNDS COARSE, LS SOME RHONCHI HEARD. -DENIES PAIN 15 MIN VS: -TEMP 98.6, HR 86, BP 146/60 15 MIN ASSESSMENT: -NEURO: A/OX2 SELF AND PLACE, ANSWERING YES/NO QUESTION APPROPRIATLY -RESP: ROOM AIR SATS 97%, LUNG SOUNDS SAME PREVIOUS ASSESSMENT -PAIN: DENIES D/T LUNG SOUNDS, CONTINUING RATE AT 75ML/H.
[2025-03-09] MEDS ORDERED: Acetaminophen 160MG / 5ML 10.15 UDC PO PRN (07:55)
--- NOTE | 2025-03-09 10:20 | NUR ---
ASSUMPTION OF CARE: ASSUMED CARE AT START OF SHFIT (0700). PT IS DOING WELL, THEY ARE ALERT AND RESTING IN BED AND FOLLOWING COMMANDS. PT DENIES ANY PAIN, CP, OR SOB AT THIS TIME. LUNG SOUNDS ARE EQUAL AND COARSE IN THE BASES BILATERALLY. SINUS RYTHM WITH SBP: 110-120'S MAP >65 HR: 60-70'S. PICC IN LUE AN PERIPHERAL IV IN RAC. KING CATHETER IN PLACE AND DRAINING TO GRAVITY. NG CONNECTED TO CONTINUOUS TF. PT HAS SWALLOW STUDY AND NUCLEAR GI IMAGING SCHEDULED FOR LATER TODAY. LINES, CORDS, AN TUBES PLACED OUT OF REACH. CALL LIGHT PLACED WITHIN REACH.
[2025-03-09 13:41] LABS: Hematocrit 18.4 % (37.0-53.0); Hemoglobin 6.2 g/dL (13.5-17.5)
--- NOTE | 2025-03-09 16:33 | NUR ---
COMFORT CARE PT AND FAMILY HAVE ELECTED COMFORT CARE. STATES THE PATIENT HAS BEEN THROUGH "ENOUGH" AND SHE AGREES WITH THE PATIENT'S DECISION NOT TO ATTEMPT TRANSFERRING TO ANOTHER HOSPITAL FOR FURTHER TREATMENT. DR. DONOVAN AGREES, COMFORT CARE ORDERS PLACED.
[2025-03-09] MEDS ORDERED: Morphine Sulfate 20 MG/1ML 1 ML Oral Syringe SL PRN (16:40)
[2025-03-09] MEDS ORDERED: Atropine Sulfate 1% Opth Soln 2ML BTL SL PRN (16:40)
--- NOTE | 2025-03-09 18:19 | NUR ---
SHIFT SUMMARY: PT IS DOING WELL AND RESTING IN BED, THEY ARE ALERT AND FOLLOWING COMMANDS. PT IS ON RA WITH SPO2 >95%. LUNG SOUNDS ARE COARSE IN BASES AND HAS EXPIRATORY WHEEZE IN UPPER AIRWAY. PT RECIEVED 2 UNITS OF BLOOD TODAY. PT HAD CT WITH CONTAST AND NUCLEAR IMAGING OF ABDOMEN DONE EARLIER TO DAY. NUCLEAR IMAGE SHOWED PT HAS GI BLEED IN SMALL INTESTINE. PT WAS PLACED ON COMFORT CARE THIS AFTERNOON AND FAMILY HAS BEEN VISITING WITH PT THROUGHOUT THE DAY. NG TUBE WAS REMOVED AND TF HAS BEEN STOPPED. KING CATHETER IN PLACE AND DRAINGING TO GRAVITY. LINES AND CORDS PLACED OUT OF REACH. CALL LIGHT PLACED WITHIN REACH.
--- NOTE | 2025-03-09 21:40 | NUR ---
TOOK REPORT FROM ICU 14 LUIS ENRIQUE SPRINGER @ [id number].
--- NOTE | 2025-03-09 22:02 | NUR ---
TRANSFER NOTE PT ALERT AND ANSWERING QUESTIONS. A/OX3. VSS. PT HAS KING DRAINING TO GRAVITY.. PICC LINE PATENT AND SALINE LOCKED. NO BM. REPORT CALLED TO ONCOMING RN, QUESTIONS ANSWERED, NO ACUTE ISSUES NEEDING ADDRESSED. PT AND BELONGINGS TAKEN TO NEW ROOM ON MED FLOOR VIA BED WITH RN. ONCOMING RN AND METAL FURNITURE PANEL COVERER MET IN NEW ROOM AND PT TRANSITIONED TO NEW BED W/O ISSUE.
--- NOTE | 2025-03-09 22:13 | NUR ---
PT ARRIVED ON UNIT WITH SPOUSE @ 3651 WITH ALL BELONGINGS.
--- NOTE | 2025-03-10 05:16 | NUR ---
SHIFT SUMMARY NOC PT A/O X 3-4, BUT WAXES AND WANES WITH MENTATION AT TIMES. PT ON COMFORT CARE MEASURES. IS AT BEDSIDE AND STAYED NIGHT WITH PT. PT [facility] IN [facility] FOR END OF LIFE COMFORT. PT HAS NOT HAD ANY C/O OF PAIN OR DISCOMFORT. PT SLEPT AFTER ARRIVING ON UNIT. PT CURRENTLY RESTING WITH BED ALARM ON FOR SAFETY, BED IN LOWEST POSITION, AND CALL LIGHT WITHIN REACH.
--- NOTE | 2025-03-10 11:20 | NUR ---
"Spiritual Care | Family Support Pt. is on comfort care and is not responsive. Family has gathered at bedside. Spouse verbalized that she had contacted the [employer] for Father Olvin to come. SInce Mass was cancelled this defective cigarette slitter called the the [employer] to confirm the families request. [employer] Office verbalized that Father Olvin would be coming after Mass. Gave the update to family memebrs at bedside."
--- NOTE | 2025-03-10 14:14 | NUR ---
"Spiritual Care | Father Olvin Father Olvin is with the family and Pt."
--- NOTE | 2025-03-10 18:11 | NUR ---
SHIFT SUMMARY PT A&O TO SELF/PERSON AND ABLE TO VERBALIZE PAIN T/O SHIFT. PAIN MEDICATED PER EMAR. FAMILY AT BEDSIDE ASSISTING W/ CARE. Q2H REPOSITIONING, SKIN WEEPING, AND PT DIAPHORETIC. PT REFUSED PO INTAKE. 1 MAROON COLORED BM. RESPIRATIONS REMAIN EVEN AND UNLABORED. CALL LIGHT WITHIN REACH AND FAMILY REMAINS AT BEDSIDE.
--- NOTE | 2025-03-11 05:27 | NUR ---
SHIFT SUMMARY NOC PT A/O X 3-4. MILD HALLUCINATIONS AT TIMES AFTER RECEIVING ROXANOL FOR LOWER ABD PAIN. PT MEDICATED FOR AGITATION X 1. FAMILY AND SPOUSE BEDSIDE ON AND OFF T/O SHIFT. PT HAS KING IN PLACE FOR COMFORT. PICC IN CHEIKH. PT AWAITING ON HOME HOSPICE AND RME PRIOR TO DISCHARGE. PT CURRENTLY RESTING WITH BED IN LOWEST POSITION, AND CALL LIGHT WITHIN REACH.
--- NOTE | 2025-03-11 11:47 | NUR ---
PT IS AN 89 Y.O. WHO CAME TO ED ON 03/05 WITH BRIGHT RED BLOOD IN HIS STOOL. ACCORDING TO PATIENT AND , HE HAD A SYNCOPAL EPISODE ON 03/04 AFTER HAVING A BM WITH BRIGHT RED BLOOD ALL OVER THE TOILET. THE PATIENT DID COMPLAIN IN THE ED THAT HE HAS BEEN FEELING WEAKER FOR THE PAST FEW WEEKS. PT HAS RECEIVED 9 UNITS OF BLOOD SINCE BEING ADMITTED. COLONOSCOPY DID NOT IDENTIFY THE SOURCE OF BLEEDING. PT HAS A HISTORY OF COPD, HTN, HLD, PARKINSON'S DISEASE. HE WAS DIAGNOSED WITH TOXIC METABOLIC ENCEPHALOPATHY, HYPOKALEMIA, HYPERNATREMIA, ACUTE ON CHRONIC KIDNEY FAILURE, ELEVATED LACTIC ACID. HE IS NOW BEDBOUND, EATING AND DRINKING ONLY SMALL SIPS AND BITES. HE IS ON ON COMFORT CARE REQUESTED BY PT AND FAMILY. ALBUMIN TRENDING DOWN, LAST RESULT WAS 2.1 PPS 30% KPS 30% REQUIRES ASSISTANCE WITH 5/6 ADL'S
--- NOTE | 2025-03-11 12:09 | NUR ---
Spiritual Care Support Met briefly with one of the Pts. sons who verbalized that the family was wanting to pursue getting the Pt[facility].
[2025-03-11] MEDS ORDERED: Diazepam 5 MG / ML 2ML SYR IV PRN (16:05)
[2025-03-11] MEDS ORDERED: Haloperidol Lactate Inj. 5 MG/ML Injection IM PRN (16:05)
--- NOTE | 2025-03-11 17:35 | NUR ---
COMFORT CARE, FAMILY VERY HELPFUL WITH CARE, BED ALARM ON, FAMILY WENT HOME FOR THE NIGHT, PATIENT MEDICATED FOR RESTLESSNESS, AGGITATION AND GRIMACING, KING TO GRAVITY. ATTENDS CDI, WILL RELAY TO PM RN
--- NOTE | 2025-03-12 04:11 | NUR ---
SHIFT SUMM: PT HAS BEEN RELAXING MOST OF THE SHIFT BUT DID HAVE SOME CONFUSION AND AGITATION AND HAS BEEN MEDICATED FOR COMFORT. PT IS ON COMFORT CARE MEASURES AND HAS A KING PATENT AND DRAINING TO GRAVITY.PT HAS PATENT PICC LINE TO CHEIKH. PT'S RIGHT ELBOW IS STILL SWOLLEN AND "WEEPS". PT HAS MEPILEX ON HEELS FOR ULCER PREVENTION. BED ALARM SET FOR SAFETY. ATTENDS IN PLACE FOR INCONT STOOLS. PT HAS BED LOW AND LOCKED FOR SAFETY.
--- NOTE | 2025-03-13 03:30 | NUR ---
SHIFT SUMM: PT IS ON COMFORT CARE MEASURES AND HAS BEEN MEDICATED FOR COMFORT PER EMAR. PT HAS BEEN RELAXING AND HAD SON AT BEDSIDE FOR FIRST FEW HOURS OF SHIFT. PT HAS BEEN CHNAGED AND TURNED Q2 TO PREVENT BED SORES AND FOR COMFORT. PT HAS NO IV ACCESS BUT HAS TOLERATED ROXANOL THE BEST FOR COMFORT THIS SHIFT. PT HAS PATENT KING DRAINING TO GRAVITY AND JEAN PADS UNDER WEEPING ARMS CHANGED OUT THEY BECOME SOILED. PT HAS MEPILEX HEEL PROTECTORS TO PREVENT HEEL DAMAGE. PT MOSTLY SLEEPS BUT IS AROUSABLE AT TIMES. PT HAS BED LOW AND LOCKED AND ALARM SET FOR SAFETY W/CALL LIGHT IN REACH.
--- NOTE | 2025-03-14 06:42 | NUR ---
SUMMARY STARTED PLEASANT, QUIET, DENIES PAIN OR ANY KIND OF DISTRESS. OFFERED PRN MED BUT SAID HE DOESNT NEED ANY. REPOSITIONED, MARGY CARE DONE, STILL HAS STAINS OF RED BROWN BOWEL MOVEMENT. AT 12 MN, PT MOOD SUDDENLY CHANGED INTO BECOMING IRRITABLE AND UNCOMFORTABLE ON POSITION, TRYING TO UNKNOT HIS PANTS. REPOSITIONED, REORIENTED TO TIME. STARTED TO BE DEMANDING ON SIMPLE TASKS, SAID HE WANTED TO WAKE UP, WORE HIS HEARING AIDS, ASKED FOR SIPS OF H20 AND MOUTH SWABS, SOMETIMES HAVING RUDE HAND GESTURES ETC. EASILY AGREED TO TAKE ATIVAN THEN GRADUALLY CALM DOWN & SLEPT AGAIN.
--- NOTE | 2025-03-14 15:18 | NUR ---
PALLIATIVE CARE VISIT: MADE SUPPORTIVE VISIT THIS MORNING WITH CM. PT APPEARS TO BE TRANSITIONING. MINIMALLY RESPONSIVE. KING CATHETER IN PLACE DRAINING ANGELES COLORED URINE. REPORTED MINIMAL INTAKE THROUGH ORAL SWABS FOR MOISTURE TO MOUTH. PAINAD IS 0/10. SYMPTOMS ARE MANAGED. CARE MANAGEMENT IN TO DISCUSS DISCHARGE PLAN.
--- NOTE | 2025-03-14 17:47 | NUR ---
SHIFT SUMMARY PT UNRESPONSIVE W/ APNEIC BREATHING AT TIMES. FAMILY REMAINED AT BEDSIDE FOR MOST OF SHIFT. CALL LIGHT IN REACH AND BED ALARM ON.
--- NOTE | 2025-03-15 06:42 | NUR ---
SUMMARY UNRESPONSIVE, ASLEEP ALL NIGHT. NO CHANGES OR ANY FLUCTUATIONS ON CONDITION OR MOVEMENT. PULSE AND RESPIRATIONS STILL PRESENT. REPOSITIONED AND CLEANED BLOOD ON STOOLS THAT ARE STILL PRESENT. DAUGHTER CALLED AND UNDERSTANDS HIS CONDITION PERFECTLY.
--- NOTE | 2025-03-15 16:42 | NUR ---
ROUNDED ON PT. ASSISTED IN PLACING NECK PILLOW. PATIENT APPEARS COMFORTABLE AT THIS TIME
--- NOTE | 2025-03-15 17:54 | NUR ---
SHIFT SUMMARY NO CHANGES FROM YESTERDAY. PT REMAINS UNRESPONSIVE, BUT APPEARS COMFORTABLE. FAMILY AT BEDSIDE T/O SHIFT.
--- NOTE | 2025-03-16 05:15 | NUR ---
SHIFT SUMMARY NOC PT REMAINS UNRESPONSIVE ON COMFORT CARE MEASUREL PT BRIEFLY OPENED EYES DURING Q2H TURNING BEFORE MIDNIGHT, BUT OTHERWISE UNRESPONSIVE. PT HAS KING IN PLACE FOR COMFORT. PT STILL HAVING RUST TINGED INCONTINENT BOWEL MOVEMENT FROM GIB. PT CURRENTLY RESTING WITH BED ALARM ON, BED IN LOWEST POSITION, AND CALL LIGHT WITHIN REACH.
--- NOTE | 2025-03-16 18:24 | NUR ---
SHIFT SUMMARY SECRETIONS AND PAIN MEDICATED PER EMAR. FAMILY AT BEDSIDE T/O SHIFT. PLACEMENT ISSUES CONTINUE, SEE CARE COORDINATION NOTES.
--- NOTE | 2025-03-17 09:45 | NUR ---
0800-ASSUMED CARE OF PATIENT. PATIENT IS ON COMFORT MEASURES. UNRESPONSIVE AT THIS TIME. RR EVEN AND UNLABORED. FAMILY AT BEDSIDE. SEE CHARTED ASSESSMENT
--- NOTE | 2025-03-17 17:27 | NUR ---
NO CHANGE TO PREVIOUS ASSESSMENTS. PATIENT REMAINS UNRESPONSIVE. APPEARS COMFORTABLE. REPOSITIONED NEEDED FOR COMFORT AND SKIN PROTECTION. FAMILY IN AND OUT THROUGHOUT THE DAY. RR EVEN AND UNLABORED. HAS REQUIRED NO PAIN MEDICATION SO FAR THIS SHIFT.
--- NOTE | 2025-03-18 03:22 | NUR ---
PT /TIME OF @0243. VERIFIED WITH RN JUANCARLOS DUDLEY. THIS GENERAL ASSEMBLER NOTIFIED THE ON-CALL HOSPITALIST DR. ORO. THIS GENERAL ASSEMBLER CALLED THE PT'S SPOUSE JORGE LUIS. PER CONVERSTATION, SHE WILL BE COMING TO THE HOSPITAL SOON POSSIBLE. ROOM SERVICE ASSOCIATE SHLOMO BY THE BEDSIDE, ROOM SERVICE ASSOCIATE ELIZABETH NOTIFIED. WILL DISCUSS THE CHOICE OF THE HOME WITH THE SPOUSE. FAMIILY WILL TAKE THE SMALL BAG OF BELONINGS WITH THEM.
== END 2025-03-18 02:45 | DRG 377 ==
LOC: ER 02:56 → SURS 02:57 → MEDS 02:57 → ICUE 02:57 → MEDS 06:11 → PCU 15:51 → ICUE 18:30 → MEDS 03-09 21:58
PROVIDERS: Emergency Medicine; Family Medicine; Internal Medicine; Internal Medicine Critical Care Medicine; Student in an Organized Health Care Education/Training Program; Surgery; ADMIT Internal Medicine
PROC: 0BH17EZ Insertion of Endotracheal Airway into Trachea, Via Natural or Artificial Opening (ICD-10-PCS; principal; 2025-03-05)
PROC: 0DH67UZ Insertion of Feeding Device into Stomach, Via Natural or Artificial Opening (ICD-10-PCS; 2025-03-05)
PROC: 02HV33Z Insertion of Infusion Device into Superior Vena Cava, Percutaneous Approach (ICD-10-PCS; 2025-03-05)
PROC: 0DB98ZX Excision of Duodenum, Via Natural or Artificial Opening Endoscopic, Diagnostic (ICD-10-PCS; 2025-03-06)
PROC: 5A1935Z Respiratory Ventilation, Less than 24 Consecutive Hours (ICD-10-PCS; 2025-03-06)
PROC: 3E033XZ Introduction of Vasopressor into Peripheral Vein, Percutaneous Approach (ICD-10-PCS; 2025-03-06)
PROC: 0DB68ZX Excision of Stomach, Via Natural or Artificial Opening Endoscopic, Diagnostic (ICD-10-PCS; 2025-03-06)
PROC: 0DJD8ZZ Inspection of Lower Intestinal Tract, Via Natural or Artificial Opening Endoscopic (ICD-10-PCS; 2025-03-07)
PROC: 30233N1 Transfusion of Nonautologous Red Blood Cells into Peripheral Vein, Percutaneous Approach (ICD-10-PCS; 2025-03-09)
DX: K57.11 Diverticulosis of small intestine without perforation or abscess with bleeding (principal); G92.8 Other toxic encephalopathy; J96.90 Respiratory failure, unspecified, unspecified whether with hypoxia or hypercapnia; D62 Acute posthemorrhagic anemia; E87.20 Acidosis, unspecified; N17.9 Acute kidney failure, unspecified; J98.11 Atelectasis; E87.0 Hyperosmolality and hypernatremia; R44.3 Hallucinations, unspecified; Z66 Do not resuscitate; Z51.5 Encounter for palliative care; R29.6 Repeated falls; J44.9 Chronic obstructive pulmonary disease, unspecified; M10.9 Gout, unspecified; K21.9 Gastro-esophageal reflux disease without esophagitis; E78.5 Hyperlipidemia, unspecified; I12.9 Hypertensive chronic kidney disease with stage 1 through stage 4 chronic kidney disease, or unspecified chronic kidney disease; N18.32 Chronic kidney disease, stage 3b; R73.9 Hyperglycemia, unspecified; R45.1 Restlessness and agitation; D69.59 Other secondary thrombocytopenia; R13.13 Dysphagia, pharyngeal phase; S00.12XA Contusion of left eyelid and periocular area, initial encounter; G20.A1 Parkinson's disease without dyskinesia, without mention of fluctuations; R55 Syncope and collapse; E86.0 Dehydration; H91.90 Unspecified hearing loss, unspecified ear; K59.00 Constipation, unspecified; F32.9 Major depressive disorder, single episode, unspecified; R56.9 Unspecified convulsions; I95.9 Hypotension, unspecified; Z91.81 History of falling; E87.6 Hypokalemia; Z79.2 Long term (current) use of antibiotics; Z79.899 Other long term (current) drug therapy; Z90.49 Acquired absence of other specified parts of digestive tract; Z90.89 Acquired absence of other organs; Z98.890 Other specified postprocedural states; Z87.891 Personal history of nicotine dependence; Z87.01 Personal history of pneumonia (recurrent); W18.30XA Fall on same level, unspecified, initial encounter
CPT/HCPCS: 36415; 36430; 36569; 70450; 71045; 74174; 74230; 78278; 80048; 80053; 82330; 82803; 82947; 83605; 83735; 84100; 84146; 84443; 84484; 85014; 85018; 85025; 85027; 85384; 85610; 85730; 86850; 86900; 86901; 86923; 87070; 87205; 88305; 88342; 92526; 92610; 92611; 93005; 93010; 94002; 94003; 95819; 96361; 96365; 96366; 96372; 96375; 96376; 99285-25; A9270; A9560; C1751; G0378; J0165; J1630; J1938; J1953; J2250; J2371; J2470; J2704; J3360; J3480; J7030; J7040; J7050; J7060; J7120; P9016; Q9967